=== PATIENT | female | born 1985 | race Caucasian/White ===

== ENCOUNTER 2017-03-22 23:16 | Emergency (ER) | payer BC ==
[~2017-03-22 23:16] MED LIST: ALLEGRA-D1 TAB 60/1 PO; ANAPROX; BACTRIM DS TABL1 TA1 PO; BENADRYL PO; BENZONATATE PO; BUPROPION PO; DOXYCYCLINE HY100 M1 PO; KEFLEX PO; NO MEDICATIONS; NORCO 5/325 TAB1 TAB PO; PHENERGAN W/CO120 ML PO; VOLTAREN75 MG PO; ZITHROMAX PO
[2017-03-22] MEDS ORDERED: ZOLOFT100 MG (23:25)
[2017-03-23 00:32] LABS: URINE SOURCE CLEAN CATCH
[2017-03-23 00:35] LABS: URINE APPEARANCE CLEAR; URINE BILIRUBIN NEG (NEG); URINE BLOOD NEG (NEG); URINE GLUCOSE NEG (NORM); URINE KETONE NEG (NEG); URINE LEUKOCYTE ESTERASE NEG (NEG); URINE NITRATE NEG (NEG); URINE PROTEIN NEG (NEG); URINE SPECIFIC GRAVITY <=1.005 (1.003-1.035); URINE UROBILINOGEN 0.2 MG/DL (NORM)
[2017-03-23 00:37] LABS: MICRO INDICATED? NO; URINE COLOR STRAW
== END 2017-03-23 03:00 | disposition home or self-care (01) ==
LOC: SED 23:16
PROVIDERS: Nurse Practitioner Family
DX: S39.012A Strain of muscle, fascia and tendon of lower back, initial encounter (principal); M54.42 Lumbago with sciatica, left side; Z79.899 Other long term (current) drug therapy; X58.XXXA Exposure to other specified factors, initial encounter; Y93.01 Activity, walking, marching and hiking; Y92.009 Unspecified place in unspecified non-institutional (private) residence as the place of occurrence of the external cause
CPT/HCPCS: 81003; 84703; 99283